=== PATIENT | male | born 1985 | race Two or more races ===

== ENCOUNTER 2021-08-28 10:39 | Emergency (ER) | payer OTHER ==
[~2021-08-28] VITALS: Ht 180.3 cm; Wt 68.0 kg
--- NOTE | 2021-08-28 10:55 | NUR ---
SADIE RAMOS From Home " called he was found on kitchen floor" Syncope. Patient doesn't remember what happened. On room air breathing evenly and unlabored. Connected to the monitor and pulse ox. Kept comfortable, will continue to monitor accordingly.
--- NOTE | 2021-08-28 11:02 | NUR ---
Dr. Garcia at bedside for eval.
--- NOTE | 2021-08-28 11:20 | NUR ---
blood collected and sent to lab.
[2021-08-28 11:27] LABS: BASOPHILS % (AUTO) 0.6 % (0.0-2.0); HEMATOCRIT 44 % (39-51); HEMOGLOBIN 14.9 g/dL (13.5-17.5); LYMPHOCYTES # (AUTO) 0.9 K/uL (0.8-4.8); LYMPHOCYTES % (AUTO) 11.5 % (20.0-44.0); MEAN CORPUSCULAR HGB CONC 34 g/dl (31.0-36.0); MEAN CORPUSCULAR VOLUME 94 fL (80-96); MONOCYTES # (AUTO) 0.3 K/uL (0.1-1.30); MONOCYTES % (AUTO) 4.2 % (2.0-12.0); NEUTROPHILS # (AUTO) 6.3 K/uL (1.8-8.9); NEUTROPHILS % (AUTO) 81.7 % (43.0-81.0); PLATELET COUNT (AUTO) 273 K/uL (150-450); RED BLOOD CELL COUNT(AUTO) 4.75 MIL/uL (4.5-6.0); WHITE BLOOD COUNT (AUTO) 7.7 K/uL (4.3-11.0)
[2021-08-28] MEDS ORDERED: IV NS 0.9% 1,000 ML BAG IV ONE (11:30)
[2021-08-28 11:45] LABS: CALCIUM, SERUM 8.9 mg/dL (8.5-10.1)
--- NOTE | 2021-08-28 11:53 | NUR ---
Spoke to mother Lela [phone]
[2021-08-28 12:57] VITALS: BP 128/77
--- NOTE | 2021-08-28 12:57 | NUR ---
Patient discharged to home in stable condition. Written and verbal after care instructions given. Patient verbalizes understanding of instruction.IV removed. Catheter intact and site benign. Pressure and 4x4 applied to site. No bleeding noted.
== END 2021-08-28 12:57 | disposition home or self-care (01) ==
LOC: ER 11:13
DX: R55 Syncope and collapse (principal); F41.9 Anxiety disorder, unspecified; F32.A Depression, unspecified
CPT/HCPCS: 36415; 70450; 71045; 80048; 85025; 93005 ×2; 96360; 99285; J7030